=== PATIENT | female | born 1940 | race Caucasian/White ===

== ENCOUNTER → 2017-12-05 | Outpatient (CLI) | payer MEDICARE, OTHER ==
[~2017-12-05] MED LIST: ACETAMINOPHEN-1 EAC1 PO; ADVAIR 250-501 EACH; ALBUTEROL2.5 MG/0.5 INH; ALLOPURINOL 30300 M2 PO; ASPIR 8181 MG PO; AUGMENTIN 875875 MG PO; AZITHROMYCIN 2250 MG PO; BACTRIM DS TAB1 EACH PO; BONIVA150 MG PO; BONIVA3 MG/3 ML PO; CARVEDILOL12.5 MG PO; CELEXA 20 MG TA20 M1 PO; CELEXA 20 MG TA20 MG; CELEXA10 M1 PO; CELEXA20 MG PO; CIPRO500 MG PO; CLOTRIMAZOLE 1%15 G1 TOP; COLACE100 MG PO; DULERA 200 MCG/13 GM; DULERA 200 MCG/13 GM INH; DUONEB 2.5-0.5 M3 ML INH; ENOXAPARIN30 MG/0.1 SUBQ; FLEXERIL PO; FLORASTOR250 MG PO; FOSINOPRIL 10 M10 M1 PO; Florastor 250MG CAPS PO; HYDRALAZINE 2525 MG PO; HYDROCODONE-AP1 EAC6 PO; IBUPROFEN200 M2; IMDUR 30 MG TAB30 M1 PO; INDERAL 20 MG T20 M1 PO; K DU PO; K-DUR 20 MEQ T20 MEQ; K-DUR PO; KLOR-CON 1010 MEQ PO; LASIX 20 MG TAB20 MG PO; LASIX 40 MG TAB40 M1 PO; LASIX 40 MG TAB40 M2 PO; LASIX 80 MG TAB80 MG PO; LEVAQUIN 500 M500 M2 PO; LIPITOR 20 MG T20 M1 PO; LIPITOR10 MG PO; LISINOPRIL40 MG PO; LOPRESSOR50; MAGNESIUM400 MG PO; MEDROLDOSEPACK PO; METOPROLOL TART25 MG PO; MIRALAX17 GM PO; MUCINEX TA600 MG/TA2 PO; Melatonin 5MG CAPSUL PO; NEURONTIN 300300 M1 PO; NIFEDIPINE ER30 MG; NITROGLYCERIN0.4 MG SUBLING; NORCO 7.5-3251 EACH PO; NORVASC2.5 MG PO; OMEPRAZOLE40 MG; PACERONE 200 M200 M1 PO; PANTOPRAZOLE SO40 M1 PO; PERCOCET PO; PHENAZOPYRIDIN200 M2 PO; PHENERGAN 25 MG25 M1 PO; PHENERGAN 25 MG25 MG PO; PREDNISONE 10 M10 MG PO; PREDNISONE 20 M20 MG PO; PREDNISONE10 MG PO; PROAIR HFA8.5 GM; PROAIR HFA8.5 GM INH; PROAIR INH; PROBIOTIC1 EAC1 PO; PROPRANOLOL 1010 MG PO; PULMICORT0.5 MG/21 INH; REQUIP 0.25 M0.25 MG PO; REQUIP 1 MG TABL1 M1 PO; REQUIP PO; REQUIP XL2 MG; REQUIP1 MG PO; REQUIP3 MG PO; ROBAXIN 750 MG750 M1 PO; SENOKOT-S1 TA1 PO; SPIRIVA INH; SPIRONOLACTONE25 M3 PO; TIZANIDINE HCL4 M1 PO; TRICOR145 MG; TRICOR145 MG PO; VENTOLIN HFA 1818 GM INH; VICODIN 5-5001 EACH; VICODIN 5-5001 EACH PO; VITAMIN D1000 UNI1 PO; VITAMIN D3 PO; ZOCOR 10 MG TAB10 MG; ZOCOR 10 MG TAB10 MG PO; [UNRECOGNIZED DRUG - OTHER]
== END ==
LOC: M.RAD 10:00
DX: Z12.31 Encounter for screening mammogram for malignant neoplasm of breast (principal)

== ENCOUNTER → 2018-01-16 | Outpatient (CLI) | payer MEDICARE, OTHER | LOC: M.RAD 13:50 | DX: I10 Essential (primary) hypertension (principal); I48.0 Paroxysmal atrial fibrillation; M19.032 Primary osteoarthritis, left wrist; R26.89 Other abnormalities of gait and mobility ==

== ENCOUNTER → 2018-01-22 | Outpatient (CLI) | payer MEDICARE, OTHER | LOC: M.MRI 01-16 14:10 | DX: M47.896 Other spondylosis, lumbar region (principal); I48.0 Paroxysmal atrial fibrillation; I10 Essential (primary) hypertension; R26.89 Other abnormalities of gait and mobility; Z88.8 Allergy status to other drugs, medicaments and biological substances ==